=== PATIENT | female | born 1970 | race Hispanic/Latino ===

== ENCOUNTER 2017-06-29 08:43 | Inpatient (IN) | payer BC ==
--- NOTE | 2017-06-29 09:23 | CT ---
CT BRAIN NONCONTRAST: HISTORY: A 47-year-old female with left facial, upper extremity, neck, and lower extremity paresthesia. FINDINGS: The ventricles are normal in size and configuration. There is no midline shift or any other mass eff ect. There is no evidence of acute intracranial hemorrhage, large cortical infarct, or extraaxial fl uid collection. The ortiz matter /white matter differentiation is maintained. The calvarium is intac t. The tympanomastoid cavities, and the upper portions of the paranasal sinuses included in these im ages, are grossly clear. IMPRESSION: Normal. jn [] POS: CET
[2017-06-29 09:48] LABS: #Lymphocytes 0.6 thou/uL (1.20-3.40); #Monocytes 0.6 thou/uL (0.11-0.59); #Neutrophils 9.4 thou/uL (1.40-6.50); %Basophils 0.1 % (0.0-1.0); %Eosinophils 0.1 % (0.0-10.0); %Lymphocytes 5.9 % (21.0-51.0); %Monocytes 5.7 % (0.0-10.0); %Neutrophils 88.2 % (42.0-75.0); Hemoglobin 13.7 g/dL (12.0-16.0); Mean Corpuscular HGB CONC 33.8 g/dL (32.0-36.0); Mean Corpuscular Hemoglobin 29.5 pg (27.0-31.0); Mean Corpuscular Volume 87.2 fl (81.0-99.0); Mean Platelet Volume 6.4 fL (7.4-10.4); Platelet Count 359 thou/uL (130-400); RBC Distribution Width 12.7 % (11.5-14.5); Red Blood Cell (RBC) Count 4.63 mill/uL (4.20-5.40); White Blood Cell (WBC) Count 10.6 thou/uL (4.8-10.8)
[2017-06-29 10:12] LABS: CKMB 1.4 ng/mL (0-6.6); Troponin I Less than 0.010 ng/mL (< 0.028)
--- NOTE | 2017-06-29 12:27 | HP ---
PRIMARY CARE PHYSICIAN: Luis Campos M.D. REASON FOR ADMISSION: Paresthesia in the left upper extremity. HISTORY OF PRESENT ILLNESS: A 47-year-old female who has underlying history of lupus and patient is on Plaquenil and leflunomide. She is following Dr. Belle on an outpatient basis. The patient report s that yesterday during daytime, she was having throbbing frontal and occipital headache. She took p rednisone that helped her headache. She did not have any other complaints yesterday. This morning w hen she woke up around 5:00, she was experiencing tingling and numbness sensation in the left upper e xtremity. Paraesthesia was more prominent on the tips of the finger. She was also feeling mild herman lar symptoms in lower extremity, as well as the patient was having similar paraesthesia on the left s jeny of face. She did not have any speech problem. She did not have any motor weakness, but she was feeling strange on the left upper extremity as well as on the face. She did not have any facial asym metry. She did not have any difficulty swallowing. She did not have any weakness. She did not have any headache at that time. She did not have any chest pain, palpitation or dizziness. She was thin buster that it could be related with her prednisone use yesterday. 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 This patient had CT brain in our emergency room, which did not show any acute intracranial process. Routine blood tests including CBC and cardiac enzymes were negative. At this point, we are admitting this patient in the stroke floor for rule out CVA. She never had this type of symptoms before. She denies any UTI symptoms. She denies any constipation, diarrhea or melena. She does have diffuse on and off joint pain. She does feel popping sensation in her left ear whenever she chews. She denies any ear discharge. She denies any ear aches. She denies any sore throat. She denies any flu-like symptoms. She denies any abdominal pain. ALLERGIES: No known drug allergy. CURRENT HOME MEDICATIONS: Xanax 0.5 mg p.o. as directed, leflunomide 10 mg daily, Plaquenil 200 mg d aily, vitamin D2 5000 units twice a week and Benlysta infusion every month. REVIEW OF SYSTEMS: Please see my HPI for pertinent positive and negative. All other review of syste ms reviewed and negative except as mentioned in the HPI. Constitutional: Weight loss or gain, ability to conduct usual activities. Skin: Rash, itching. Eyes: Double vision, pain. ENT/Mouth: Nose bleeding, neck stiffness, pain, tenderness. Cardiovascular: Palpitations, dyspnea on exertion, orthopnea. Respiratory: Shortness of breath, wheezing, cough, hemoptysis, fever or night sweats. Gastrointestinal: Poor appetite, abdominal pain, heartburn, nausea, vomiting, constipation, or diarr hea. Genitourinary: Urgency, frequency, dysuria, nocturia. Musculoskeletal: Pain, swelling. Neurologic/Psychiatric: Anxiety, depression. Allergy/Immunologic: Skin rash, bleeding tendency. PAST MEDICAL HISTORY: Collagen vascular disease including lupus. PAST PSYCHIATRIC HISTORY: Anxiety disorder. PAST SURGICAL HISTORY: Cholecystectomy and hysterectomy. SOCIAL HISTORY: The patient is . 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 She does not have any tobacco, alcohol or illicit drug abuse. FAMILY HISTORY: Father had heart disease. Both grandparents had cancer. Grandfather father had alfonso g cancer. No family history of stroke. EMERGENCY ROOM COURSE: The patient has received aspirin. PHYSICAL EXAMINATION: VITAL SIGNS: On arrival, blood pressure 133/94, pulse 76, respiratory rate 16, temperature 98.3, sat uration 96% on room air and weight 85.7 kilograms. GENERAL: The patient is currently alert and awake in no obvious acute distress. HEAD: Normocephalic and atraumatic. EYES: Pupils are round and reactive to light. Extraocular muscles intact. ENT: Oropharynx within normal limits. Moist mucous membranes. No oral lesion, no pharyngeal erythe ma, no exudate. NECK: Supple. No JVD, no thyromegaly, no carotid bruit, no jugular venous distention. LUNGS: Clear to auscultation without any rhonchi or rales. CARDIAC: S1 and S2 regular. No murmur, no gallop, no rub. ABDOMEN: Soft. Bowel sounds present. Nontender and nondistended. No organomegaly, no mass, no sup rapubic tenderness. BACK: Unremarkable. No CVA tenderness. EXTREMITIES: Upper extremity passive movement of all joints are normal. Lower extremities: No shay a. Good peripheral pulsation. SKIN: No skin rash. HEMATOLOGICAL SYSTEM: No lymphadenopathy. NEUROLOGIC: The patient is alert and oriented x3. Cranial nerves II-XII intact. Motor: 5/5 in all four limbs. Speech normal. The patient does have 4+ sensory deficit in the left side of the face a s well as left upper extremity and mild sensory disturbance on the left lower extremity, plantar bila teral flexor. Gait normal. PSYCHIATRIC: Normal affect. SIGNIFICANT LABS: EKG showing normal sinus rhythm, low QRS complex. CT brain based on my review, no acute intracranial process. CBC: WBC 10.6, hemoglobin 13.7 and platelets 359. Cardiac enzymes negative. CK of 83. ASSESSMENT, PLAN AND IMPRESSION: 1. Left upper extremity as well as lower extremity paraesthesia including left side of face. At thi s point, I am suspecting left-sided sensory cerebrovascular accident from possibly vasculitis. We wi ll check YURIY and CRP as well as sediment rate. We will obtain MRI brain, carotid Doppler and echocar diography as a part of transient ischemic attack workup. We will monitor and observe on stroke floor . We will do cardiac monitoring as well. We will check lipid profile and homocysteine level tomorro w. Meanwhile, we will continue the aspirin 325 mg p.o. daily. We will monitor patient's vitals whil e in hospital and consider antihypertensive medication if needed, we will start Lipitor 10 mg p.o. at bedtime as well. 2. Systemic lupus erythematosus. The patient is taking leflunomide and Plaquenil, which we will con tinue while in hospital as per home dosage and patient will have Benlysta, which she is due end of . 3. Vitamin D deficiency. The patient will continue vitamin D 5000 units p.o. twice a week. 4. Anxiety disorder. We will continue Xanax 0.5 mg p.o. q.i.d. p.r.n. 5. Deep venous thrombosis prophylaxis not needed because we are expecting discharge in 24 hours, onl y sequential compression device boots. 6. Gastrointestinal prophylaxis, Pepcid 20 mg p.o. b.i.d. 7. CODE STATUS: The patient is FULL CODE. The patient is making decision by herself. She does not have any surrogate decision maker. Disposition and plan based on clinical course. We are expecting patient's stay in hospital 24 hours. Plan of care discussed with the patient in detail.
[2017-06-29 14:37] LABS: Troponin I Less than 0.010 ng/mL (< 0.028)
[2017-06-29] MEDS ORDERED: Loratadine 10 MG TAB PO PRN (14:47)
[2017-06-29] MEDS ORDERED: Loperamide HCl 2 MG CAP PO PRN (14:47)
[2017-06-29] MEDS ORDERED: hydrALAZINE 20 MG/ML VIAL SLOW IVP PRN (14:47)
[2017-06-29] MEDS ORDERED: Acetaminophen 325 MG TAB PO PRN (14:47)
[2017-06-29] MEDS ORDERED: Ondansetron ODT 4 MG TAB PO PRN (14:47)
[2017-06-29] MEDS ORDERED: HYDROcodone/Acetaminophen 5/325 mg Tablet PO PRN (14:47)
[2017-06-29] MEDS ORDERED: Diabetic Tussin 200 MG/10 ML UDCUP PO PRN (14:47)
[2017-06-29] MEDS ORDERED: Sodium Chloride 0.65% Nasal 44 ML BOT EA NARE PRN (14:47)
[2017-06-29] MEDS ORDERED: Mag-Al 1200 mg/1200 mg/30 ML UDCUP PO PRN (14:47)
[2017-06-29] MEDS ORDERED: Chloraseptic Spray 180 ml Bottle PO PRN (14:47)
[2017-06-29] MEDS ORDERED: ALPRAZolam 0.25 MG TAB PO PRN (14:47)
[2017-06-29] MEDS ORDERED: Milk Of Magnesia 30 ML UDCUP PO PRN (14:47)
[2017-06-29] MEDS ORDERED: Eucerin (Mineral Oil/Petrolatum,White) 30 gm Jar TOP PRN (14:47)
[2017-06-29] MEDS ORDERED: Ondansetron HCl/PF 4 MG/2 ML Vial IVP PRN (14:47)
[2017-06-29] MEDS ORDERED: Artificial Tears 18 DROP/0.9 ML EA EYE PRN (14:47)
[2017-06-29] MEDS ORDERED: Senokot 8.6 MG TAB PO PRN (14:47)
[2017-06-29 15:01] VITALS: BMI 32.4
[2017-06-29] MEDS ORDERED: FLU VACC QS2017-18 36 mo. & older 0.5 ML SYRINGE IM ONE (16:00)
[2017-06-29] MEDS ORDERED: Prevnar 13-Val Conj/PF 0.5 ML SYRINGE IM ONE (16:00)
[2017-06-29 17:03] LABS: Troponin I Less than 0.010 ng/mL (< 0.028)
--- NOTE | 2017-06-29 17:36 | MRI ---
MRI OF BRAIN WITHOUT CONTRAST 06/29/17 HISTORY: Transient ischemic attack. Tingling left side of face and arm. COMPARISON: CT brain same day. FINDINGS: On the diffusion weighted imaging sequence, there are no abnormal areas of diffusion restriction to s uggest acute infarction. This is confirmed on the ADC map. On the susceptibility weighted imaging sequence, no abnormal areas of hemorrhage. On the FLAIR sequence, no subarachnoid hemorrhage was appreciated. The [place] flow voids are maintained as well as dural venous sinuses. Orbits are unremarkable. Marrow signal of the clivus is normal. The corpus callosum is normal. The cerebellar tonsils terminate at the level of the foramen magnum. IMPRESSION: Unremarkable examination of the brain. No acute infarct or hemorrhage. POS: VIVIAN
[2017-06-29 18:18] LABS: Bilirubin Negative (Negative); Blood, Urine Negative (Negative); Clarity CLEAR (Clear); Glucose, Urine (Dipstick) Negative (Negative); Leukocyte Negative (Negative); Nitrite Negative (Negative); Protein, Urine (Dipstick) Negative (Neg-Trace); Specific Gravity, Urine 1.019 (1.002-1.036); Urobilinogen 0.2 mg/dL (0.2-1.0)
[2017-06-29 18:22] LABS: Bacteria/HPF Rare-Few HPF (None Seen); Hyaline Casts/LPF 0-3 HYALINE CAST LPF (0-3 Hyaline); RBC/HPF 0-3 HPF (0-3); Squamous Epithelial 0-3 HPF (0-3); WBC/HPF 0-3 HPF (0-3)
[2017-06-29] MEDS: Famotidine 20 MG TAB PO SCH (20:24)
[2017-06-29] MEDS: Bupropion 150 MG SR TAB PO SCH ×2 (20:24→20:35)
--- NOTE | 2017-06-29 20:33 | ULT ---
ULTRASOUND CAROTID DOPPLER STANDARD 06/29/17 HISTORY: TIA. COMPARISON: None. FINDINGS: Real time ortiz scale color doppler with spectral analysis extracranial carotid and vertebral arteries was performed with the linear transducer. Elevated peak systolic velocities of the internal carotid arteries. Antegrade flow both vertebral arteries. Right ICA/CCA ratio of 0.5. Left ICA/CCA ratio of 0.7. Right ICA peak systolic velocity is 57 cm/s. IMPRESSION: No hemodynamically significant stenosis. POS: BJ
[2017-06-29] MEDS ORDERED: Atorvastatin Calcium 20 MG TAB PO SCH (21:00)
[2017-06-30 00:16] VITALS: TEMP 98.5
[2017-06-30 05:07] LABS: ALT (SGPT) 14 U/L (8-55); AST (SGOT) 13 U/L (5-34); Albumin 4.1 g/dL (3.5-5.0); Alkaline Phosphatase 74 U/L (40-150); Anion Gap 10 mmol/L (10-20); BUN (Urea Nitrogen) 15 mg/dL (7.0-18.7); Bilirubin, Total 0.4 mg/dL (0.2-1.2); CRP (Inflammatory) Less than 0.50 mg/dL (= or < 0.5); Calc. Creatinine Clearance 131 mL/min (70-130); Calcium 9.4 mg/dL (7.8-10.44); Carbon Dioxide 26 mmol/L (22-29); Cardiac Risk 3.7 (Less than 4.5); Chloride 107 mmol/L (98-107); Cholesterol 176 mg/dl (< 200 Desired); Estimated GFR-MDRD 88; Globulin 2.8 g/dL (2.4-3.5); Glucose 104 mg/dL (70-105); HDL Cholesterol 48 mg/dL (>60 Neg Risk); LDL Cholesterol, Calculated 107 mg/dL; Potassium 3.4 mmol/L (3.5-5.1); Protein, Total 6.9 g/dL (6.0-8.3); Sodium 140 mmol/L (136-145); Triglycerides 107 mg/dL (Less than 150)
[2017-06-30] MEDS ORDERED: Potassium Chloride 20 MEQ TAB PO SCH (07:45)
[2017-06-30] MEDS ORDERED: Ketorolac Tromethamine 30 MG/ML VIAL IVP SCH (08:15)
[2017-06-30] MEDS: Famotidine 20 MG TAB PO SCH (08:36)
[2017-06-30] MEDS: Bupropion 150 MG SR TAB PO SCH (08:39)
[2017-06-30 08:55] VITALS: BP 127/83
[2017-06-30] MEDS ORDERED: Aspirin 325 mg Enteric Coated Tablet PO SCH (09:00)
[2017-06-30] MEDS ORDERED: Hydroxychloroquine Sulfate 200 MG TAB PO SCH (09:00)
[2017-06-30] MEDS ORDERED: Leflunomide 10 mg Tablet PO SCH (09:00)
--- NOTE | 2017-06-30 10:18 | PDOC.PN ---
- Subjective Encounter Start Date: 06/30/17 Encounter Start Time: 07:00 -: old records requested/rev Patient seen and examined. No new complaints. No overnight events - Objective Resuscitation Status: Resuscitation Status FULL:Full Resuscitation MAR Reviewed: Yes Vital Signs & Weight: Vital Signs (12 hours) Temp Pulse Resp BP BP Pulse Ox 06/30/17 08:12 98.5 F 90 16 06/30/17 07:36 98.2 F 68 16 127/83 97 06/30/17 04:30 98.5 F 90 16 135/70 98 06/30/17 00:14 98.5 F 72 18 129/78 98 Weight Weight 189 lb I&O: 06/29/17 06/30/17 07/01/17 06:59 06:59 06:59 Intake Total 1210 Output Total 300 Balance 910 Result Diagrams: 06/29/17 09:38 06/30/17 04:36 Radiology Reviewed by me: Yes EKG Reviewed by me: Yes Phys Exam - Physical Examination Constitutional: NAD HEENT: PERRLA, moist MMs, sclera anicteric Neck: no JVD, supple Respiratory: no wheezing, no rales, no rhonchi Cardiovascular: RRR, no significant murmur, no rub Gastrointestinal: soft, non-tender, no distention, positive bowel sounds Musculoskeletal: no edema, pulses present Neurological: non-focal, normal sensation, moves all 4 limbs Psychiatric: normal affect, A&O x 3 Skin: no rash, normal turgor Dx/Plan (1) Arm paresthesia, left Code(s): R20.2 - PARESTHESIA OF SKIN Status: Acute (2) Hypokalemia Code(s): E87.6 - HYPOKALEMIA Status: Acute (3) Anxiety Code(s): F41.9 - ANXIETY DISORDER, UNSPECIFIED Status: Chronic (4) Lupus (systemic lupus erythematosus) Code(s): M32.9 - SYSTEMIC LUPUS ERYTHEMATOSUS, UNSPECIFIED Status: Chronic (5) Obesity (BMI 30.0-34.9) Code(s): E66.9 - OBESITY, UNSPECIFIED Status: Chronic (6) Migraine Code(s): G43.909 - MIGRAINE, UNSP, NOT INTRACTABLE, WITHOUT STATUS MIGRAINOSUS Status: Suspected - Plan cont current plan of care * medication reviewed as below * symptomatic treatment * see discharge summery. Review of Systems - Review of Systems Eyes: negative: Pain, Vision Change, Conjunctivae Inflammation, Eyelid Inflammation, Redness, Other ENT: negative: Ear Pain, Ear Discharge, Nose Pain, Nose Discharge, Nose Congestion, Mouth Pain, Mouth Swelling, Throat Pain, Throat Swelling, Other Respiratory: negative: Cough, Dry, Shortness of Breath, Hemoptysis, SOB with Excertion, Pleuritic Pain, Sputum, Wheezing Cardiovascular: negative: chest pain, palpitations, orthopnea, paroxysmal nocturnal dyspnea, edema, light headedness, other Gastrointestinal: negative: Nausea, Vomiting, Abdominal Pain, Diarrhea, Constipation, Melena, Hematochezia, Other Genitourinary: negative: Dysuria, Frequency, Incontinence, Hematuria, Retention , Other Musculoskeletal: negative: Neck Pain, Shoulder Pain, Arm Pain, Back Pain, Hand Pain, Leg Pain, Foot Pain, Other Skin: negative: Rash, Lesions, Negrito, Bruising, Other - Medications/Allergies Allergies/Adverse Reactions: Allergies Allergy/AdvReac Type Severity Reaction Status Date / Time No Known Allergies Allergy Verified 06/29/17 14:49 Medications: Current Medications Acetaminophen (Tylenol) 650 mg PO Q4H PRN PRN Reason: Headache/Fever or Pain Hydrocodone Bitart/Acetaminophen (Williams 5/325) 1 tab PO Q4H PRN PRN Reason: Moderate Pain (4-6) Al Hydroxide/Mg Hydroxide (Maalox) 30 ml PO Q6H PRN PRN Reason: Heartburn or Indigestion Alprazolam (Xanax) 0.25 mg PO QIDPRN PRN PRN Reason: Anxiety/Restlessness/Sleep Artificial Tears (Tears Naturale) 0 drop EA EYE PRN PRN PRN Reason: Dry Eyes Aspirin (Ecotrin) 325 mg PO DAILY [facility] Last Admin: 06/30/17 08:36 Dose: 325 mg Atorvastatin Calcium (Lipitor) 20 mg PO HS [facility] Last Admin: 06/29/17 20:24 Dose: 20 mg Bupropion HCl (Wellbutrin Sr) 150 mg PO BID [facility] Last Admin: 06/30/17 08:39 Dose: Not Given Cholecalciferol (Vitamin D3) 1,000 units PO DAILY [facility] Last Admin: 06/30/17 08:35 Dose: 1,000 units Famotidine (Pepcid) 20 mg PO BID [facility] Last Admin: 06/30/17 08:36 Dose: 20 mg Guaifenesin (Robitussin Sf) 200 mg PO Q4H PRN PRN Reason: Cough Hydralazine HCl (Apresoline) 10 mg SLOW IVP Q4H PRN PRN Reason: Systolic BP > 180 Hydroxychloroquine Sulfate (Plaquenil) 200 mg PO DAILY [facility] Last Admin: 06/30/17 08:35 Dose: 200 mg Ketorolac Tromethamine (Toradol) 30 mg IVP NOW [facility] Stop: 06/30/17 12:00 Last Admin: 06/30/17 08:34 Dose: 30 mg Leflunomide (Arava) 10 mg PO DAILY [facility] Last Admin: 06/30/17 08:46 Dose: Not Given Loperamide HCl (Imodium) 2 mg PO PRN PRN PRN Reason: Diarrhea/Loose Stools Loratadine (Claritin) 10 mg PO DAILYPRN PRN PRN Reason: Sinus Symptoms Magnesium Hydroxide (Milk Of Magnesium) 30 ml PO DAILYPRN PRN PRN Reason: Constipation Mineral Oil/White Petrolatum (Eucerin Cream) 0 gm TOP BIDPRN PRN PRN Reason: Dry Skin Ondansetron HCl (Zofran Odt) 4 mg PO Q6H PRN PRN Reason: Nausea/Vomiting Ondansetron HCl (Zofran) 4 mg IVP Q6H PRN PRN Reason: Nausea/Vomiting Phenol (Chloraseptic [place] 180 Ml Bot) 0 ml PO PRN PRN PRN Reason: Sore Throat Senna (Senokot) 2 tab PO HSPRN PRN PRN Reason: Constipation Sodium Chloride ([place] Nasal [place] 0.65%) 0 ml EA NARE QIDPRN PRN PRN Reason: Nasal Congestion Sodium Chloride (Flush - Normal Saline) 10 ml IVF Q12HR [facility] Last Admin: 06/30/17 08:36 Dose: 10 ml Sodium Chloride (Flush - Normal Saline) 10 ml IVF PRN PRN PRN Reason: Saline Flush
[2017-06-30 10:44] LABS: ANA Symphony (Qualitative) Negative (Negative); ANA Symphony (Quantitative) 0.2 Ratio (<0.7 Negative)
--- NOTE | 2017-06-30 11:21 | DIS ---
PRIMARY CARE PHYSICIAN: Dr. Luis Campos DATE OF ADMISSION: 06/29/2017 DATE OF DISCHARGE: 06/30/2017 DISCHARGE DISPOSITION: Home. PRIMARY DISCHARGE DIAGNOSES: 1. Left upper extremity paraesthesia. 2. Headache. 3. Suspected migraine headache. 4. Hypokalemia. SECONDARY DISCHARGE DIAGNOSES: Anxiety, systemic lupus erythematosus, obesity with BMI 32. PRIMARY PROCEDURE/OPERATION: None. RADIOLOGICAL INVESTIGATION: CT brain normal. MRI brain normal. Carotid Doppler normal. Echocardio graphy pending. SIGNIFICANT DATA: CBC normal. ESR 4, potassium 3.4, otherwise electrolytes normal. LFT normal, LDL 107. Cardiac enzymes negative x3. CRP less than 0.50. Homocysteine 7.8. Urinalysis normal. DISCHARGE MEDICATIONS: New medication, amitriptyline 25 mg p.o. at bedtime, aspirin 81 mg p.o. daily . Continue following medications; Evista 120 mg IV as directed, vitamin D3 3000 units p.o. at bedtim e, Plaquenil 200 mg p.o. b.i.d. Arava 20 mg p.o. at bedtime. CONTRAINDICATIONS: None. CODE STATUS: FULL CODE. INPATIENT CONSULTANTS: None. ALLERGIES: No known drug allergy. DISCHARGE PLAN: Post hospital, the patient is advised to follow up with the Neurology for recurrent headache. The patient will make appointment with primary care physician. HOSPITAL COURSE: The patient is a 47-year-old female who has a long history of headaches. She had h eadache and subsequently she was experiencing left upper extremity paraesthesia and that is what she was concerned about stroke and she came to ER for evaluation. Her CT brain is negative, we did MRI b rain and carotid Doppler and ruled out stroke. At this point, we are suspecting the patient might armendariz ve migraine headache with complication of paraesthesia on left upper extremity with sensory symptoms, but it is not clear. We are starting amitriptyline. This patient has slightly elevated LDL, but sh e does not want to start statin therapy and rather she wanted to try diet and exercise. The patient is neurologically completely intact. Echocardiography result is pending by the time of d ictation. The patient is seen and examined at bedside today. Please see my progress note from today. The josh ent will continue all her previous medication. Patient is medically stable for discharge.
--- NOTE | 2017-07-01 17:35 | EKG ---
Test Reason : Blood Pressure : / mmHG Vent. Rate : 071 BPM Atrial Rate : 071 BPM P-R Int : 154 ms QRS Dur : 092 ms QT Int : 394 ms P-R-T Axes : 063 -11 035 degrees QTc Int : 428 ms Normal sinus rhythm Low voltage QRS Borderline ECG Confirmed by RAZA HASTINGS, KERLINE ([id number]), metropolitan editor GABY RUIZ ([id number] on 07/01/2017 5:33:51 PM Referred By: Confirmed By:KERLINE PERSON MD
== END 2017-06-30 12:06 | disposition home or self-care (01) | DRG 103 ==
LOC: ERS 08:43 → 2SE 11:15
PROVIDERS: ADMIT Internal Medicine; ATTEND Internal Medicine
DX: G43.909 Migraine, unspecified, not intractable, without status migrainosus (principal); M32.9 Systemic lupus erythematosus, unspecified; R20.2 Paresthesia of skin; E55.9 Vitamin D deficiency, unspecified; E87.6 Hypokalemia; F41.9 Anxiety disorder, unspecified; E66.9 Obesity, unspecified; Z68.32 Body mass index [BMI] 32.0-32.9, adult
CPT/HCPCS: 36415; 70450; 70551; 80053; 80061; 81001; 82553; 83090; 84484; 85025; 85652; 86038; 86140; 86225; 93005; 93306; 93880; A4216; J1885

== ENCOUNTER 2017-08-15 16:47 | Outpatient (CLI) | payer BC | END 2017-08-15 16:48 | disposition home or self-care (01) | LOC: BICRAD 16:47 | PROVIDERS: ATTEND Internal Medicine Rheumatology | DX: M54.2 Cervicalgia (principal); M47.892 Other spondylosis, cervical region | CPT/HCPCS: 72040 ==

== ENCOUNTER 2017-11-24 10:54 | Outpatient (CLI) | payer BC | END 2017-11-24 10:55 | disposition home or self-care (01) | LOC: BICRAD 10:54 | PROVIDERS: ATTEND Internal Medicine | DX: M25.511 Pain in right shoulder (principal); M54.5 Low back pain; M46.96 Unspecified inflammatory spondylopathy, lumbar region; W19.XXXA Unspecified fall, initial encounter | CPT/HCPCS: 72100 ==

== ENCOUNTER 2017-11-30 15:27 | Outpatient (CLI) | payer BC | END 2017-11-30 15:28 | disposition home or self-care (01) | LOC: BICMAMMO 15:27 | PROVIDERS: ATTEND Internal Medicine | DX: Z12.31 Encounter for screening mammogram for malignant neoplasm of breast (principal) | CPT/HCPCS: 77063; 77067 ==

== ENCOUNTER 2020-09-12 20:27 | Emergency (ER) | payer BC ==
[2020-09-12 20:59] LABS: #Basophils 0.1 thou/uL (0.0-0.2); #Eosinphils 0.1 thou/uL (0.0-0.7); #Lymphocytes 2.2 thou/uL (1.20-3.40); #Monocytes 0.9 thou/uL (0.11-0.59); #Neutrophils 6.9 thou/uL (1.40-6.50); %Basophils 0.6 % (0.0-1.0); %Eosinophils 1.4 % (0.0-10.0); %Lymphocytes 21.6 % (21.0-51.0); %Monocytes 8.5 % (0.0-10.0); %Neutrophils 67.8 % (42.0-75.0); Hemoglobin 13.7 g/dL (12.0-16.0); Mean Corpuscular HGB CONC 34.9 g/dL (32.0-36.0); Mean Corpuscular Hemoglobin 30.9 pg (27.0-31.0); Mean Corpuscular Volume 88.6 fL (78.0-98.0); Mean Platelet Volume 6.2 fL (7.4-10.4); Platelet Count 355 thou/uL (130-400); RBC Distribution Width 12.3 % (11.5-14.5); Red Blood Cell (RBC) Count 4.42 mill/uL (4.20-5.40); White Blood Cell (WBC) Count 10.2 thou/uL (4.8-10.8)
[2020-09-12] MEDS ORDERED: Aspirin Chewable 81 MG TAB ONE (21:11)
[2020-09-12] MEDS ORDERED: Nitroglycerin 2% Ointment 1 INCH/1 GM Packet ONE (21:11)
[2020-09-12 21:17] LABS: ALT (SGPT) 14 U/L (8-55); AST (SGOT) 15 U/L (5-34); Albumin 4.3 g/dL (3.5-5.0); Alkaline Phosphatase 93 U/L (40-110); Anion Gap 14 mmol/L (10-20); BUN (Urea Nitrogen) 14 mg/dL (9.8-20.1); Bilirubin, Total 0.4 mg/dL (0.2-1.2); Calc. Creatinine Clearance 0 mL/min (70-130); Calcium 9.5 mg/dL (7.8-10.44); Carbon Dioxide 28 mmol/L (22-29); Chloride 105 mmol/L (98-107); Globulin 2.9 g/dL (2.4-3.5); Glucose 96 mg/dL (70-105); Potassium 3.9 mmol/L (3.5-5.1); Protein, Total 7.2 g/dL (6.0-8.3); Sodium 143 mmol/L (136-145)
[2020-09-12] MEDS ORDERED: Ketorolac Tromethamine 30 MG/ML VIAL ONE (21:26)
[2020-09-12 21:56] LABS: CK (CPK) 63 U/L (29-168); Lipase 23 U/L (8-78)
== END 2020-09-12 22:07 | disposition home or self-care (01) ==
LOC: ERS 20:27
DX: R07.9 Chest pain, unspecified (principal); I10 Essential (primary) hypertension; Z79.899 Other long term (current) drug therapy
CPT/HCPCS: 36415; 71045; 80053; 82550; 83690; 84484; 85025; 85379; 93005; 96374; J1885

== ENCOUNTER 2020-09-17 15:45 | Outpatient (CLI) | payer BC | END 2020-09-17 15:46 | disposition home or self-care (01) | LOC: BICMAMMO 15:45 | PROVIDERS: ATTEND Internal Medicine | DX: Z12.31 Encounter for screening mammogram for malignant neoplasm of breast (principal) | CPT/HCPCS: 77063; 77067 ==

== ENCOUNTER 2021-09-30 12:39 | Outpatient (CLI) | payer BC | END 2021-09-30 12:40 | disposition home or self-care (01) | LOC: MRI 12:39 | PROVIDERS: ATTEND Psychiatry & Neurology Neurology | DX: R20.2 Paresthesia of skin (principal) | CPT/HCPCS: 70551 ==

== ENCOUNTER 2024-01-09 07:57 | Outpatient (CLI) | payer BC | END 2024-01-09 07:58 | disposition home or self-care (01) | LOC: BICMAMMO 07:57 | PROVIDERS: ATTEND Internal Medicine | DX: N64.89 Other specified disorders of breast (principal); R92.30 Dense breasts, unspecified | CPT/HCPCS: G0279 ==